=== PATIENT | female | born 1975 | race Caucasian/White ===

== ENCOUNTER 2020-07-17 10:57 | Outpatient (REF) | payer OTHER, SELFPAY | END 2020-07-17 10:58 | disposition home or self-care (01) | LOC: HO.LAB 10:57 | PROVIDERS: Visit Provider Advanced Practice Midwife | DX: N93.9 Abnormal uterine and vaginal bleeding, unspecified (principal); R58 Hemorrhage, not elsewhere classified | CPT/HCPCS: 88305; 99213; 99214; 99215 ==

== ENCOUNTER 2020-10-01 15:19 | Outpatient (REF) | payer OTHER, SELFPAY | END 2020-10-01 15:20 | disposition home or self-care (01) | LOC: HO.LNP 15:19 | PROVIDERS: Visit Provider Nurse Practitioner Family | DX: Z20.828 Contact with and (suspected) exposure to other viral communicable diseases (principal) | CPT/HCPCS: U0003 ==

== ENCOUNTER 2020-12-16 11:39 | Outpatient (REF) | payer OTHER, SELFPAY | END 2020-12-16 11:40 | disposition home or self-care (01) | LOC: HO.LNP 11:39 | PROVIDERS: Visit Provider Nurse Practitioner Family | DX: Z20.822 Contact with and (suspected) exposure to COVID-19 (principal) | CPT/HCPCS: U0003; U0005 ==

== ENCOUNTER → 2021-04-09 12:47 | Outpatient (REF) | payer OTHER, SELFPAY ==
--- NOTE | 2021-04-09 12:50 | CA_ITS ---
Transthoracic Echocardiogram Patient (Last, First, Middle): Johnathon Aranda, Gender: Female Date of : 1975 Age: 46 Procedure Date: 04/09/2021 Procedure Type: Transthoracic Echocardiogram Location: OP Height: 167.64 cm Weight: 104.33 kg BSA: 2.12 m2 Heart Rate: bpm BP: 110 / 80 mmHg Pattern Designer: CARLOS Zarate MD: Garrett Rubio [facility] Symptoms: R01.1 - Cardiac murmur, unspecified Study Quality: Good Conclusions: - Normal left ventricular size and systolic function. - Diastolic function is normal for age. - No significant valvular or pericardial pathology. Findings Left Ventricle Normal left ventricular size and systolic function. There is mildly increased left ventricular wall thickness. The visually estimated ejection fraction is between 55-60%. There is no evidence of regional wall motion abnormalities. Diastolic function is normal for age. Right Ventricle Normal right ventricular cavity size and systolic function. Atria Both atria are normal in size. Aortic Valve Normal aortic valve structure and function. There is no aortic valve stenosis. There is no aortic valve regurgitation. Mitral Valve Normal mitral valve structure and function. There is no mitral valve regurgitation. There is no mitral valve stenosis. Pulmonic Valve Normal pulmonic valve structure and function. There is trace pulmonic valve regurgitation. Tricuspid Valve Normal tricuspid valve structure and function. There is trace tricuspid valve regurgitation. Normal right atrial pressure. There is no evidence of pulmonary hypertension. Great Vessels All visible segments of the aorta are normal in size. The visualized portions of the pulmonary artery and branches are normal. Venous The inferior vena cava is normal in size and collapses greater than 50% with inspiration. Pericardium/Pleural There is no evidence of pericardial effusion. Prior Study Comparison No prior study available for comparison. Measurements 2D Linear Measurements IVSd: 1.00 0.6-0.9/0.6-1.0 cm LVIDd: 4.64 3.9-5.3/4.2-5.9 cm LVIDd Index: 2.19 2.4-3.2/2.2-3.1 cm/m2 LVIDs: 2.75 2.0-3.6 cm LVPWd: 0.90 0.7-1.1 cm Ao Root: 3.50 2.1-3.5 cm LA Diam: 3.90 2.7-3.8/3.0-4.0 cm LAIDs Index: 1.84 1.5-2.3 cm/m2 LV Mass: 187.56 67-162/88-224 g LV Mass Index: 88.47 43-95/49-115 g/m2 LVOT Diam: 2.20 3.0+(-)1.3 cm Mitral Valve MV Pk E: 0.75 MV PK A: 0.58 MV Decel Time: 344.00 E/A: 1.30 E'Lateral: 11.70 E'Medial: 8.27 E/E' Med: 9.00 E/E' Lat: 6.40 PHT: 101.00 MVA PHT: 2.18 Decel Morrow: 2.17 Aortic Valve AoV Pk Dylan: 1.36 AoV Mn Dylan: 0.99 AoV VTI: 0.32 AoV Pk Grad: 7.00 Aov Mn Grad: 4.00 VIRGIE Cont.VTI: 2.98 LVOT LVOT Pk Dylan: 1.07 LVOT Mn Dylan: 0.80 LVOT VTI: 0.25 LVOT Pk Grad: 5.00 LVOT Mn Grad: 3.00 LVOT Diam: 2.20 LVOT Area: 3.80 Diastolic Function MV Pk E: 0.75 MV Pk A: 0.58 E/A: 1.30 E'Medial: 8.27 E/E' Med: 9.00 E' Laterial: 11.70 E/E' Lat: 6.40 Tricuspid Valve TR Pk Dylan: 2.21 TR Pk Grad: 20.00 RA Press: 3.00 RVSP: 23.00 Great Vessels Aorta Ao Root-2D: 3.50 2.0-3.7 cm Ao Asc: 3.10 2.1-3.4 cm Ao Arch: 3.30 Updated in Other Vendor System with Status of Final Adonis Delgadillo MD electronically signed on 04/11/2021 7:10:19 PM with status of Final
[2021-04-09 15:33] LABS: Alanine Aminotransferase 26 U/L (0-31); Albumin Level 4.3 g/dL (3.5-5.0); Alkaline Phosphatase 84 U/L (39-117); Anion Gap 13 (12-20); Aspartate Amino Transferase 21 U/L (5-31); Bilirubin Total 0.3 mg/dL (0.0-1.0); Blood Urea Nitrogen 15 mg/dL (9-16); Calcium 10.4 mg/dL (8.4-10.2); Carbon Dioxide 30 mmol/L (22-29); Chloride 104 mmol/L (96-108); Cholesterol 263 mg/dL; Estimated Glomerular Filt Rate > 60; Glucose Fasting 92 mg/dL (60-99); HDL Cholesterol 59 mg/dL; LDL Cholesterol Calculated 152 mg/dl; Sodium 142 mmol/L (135-145); Total Protein 7.2 g/dL (6.5-8.0); Triglycerides 261 mg/dL
[2021-04-09 15:55] LABS: TSH reflex Free T4 1.74 uIU/mL (0.32-4.0)
== END ==
LOC: HO.CARD 12:47
PROVIDERS: PCP Nurse Practitioner Family; Visit Provider Nurse Practitioner Family
DX: Z00.00 Encounter for general adult medical examination without abnormal findings (principal); R01.1 Cardiac murmur, unspecified
CPT/HCPCS: 36415; 80053; 80061; 84443; 93306

== ENCOUNTER 2021-05-04 11:29 | Outpatient (REF) | payer OTHER, SELFPAY | END 2021-05-04 11:30 | disposition home or self-care (01) | LOC: HO.LNP 11:29 | PROVIDERS: Visit Provider Hospitalist | DX: Z20.822 Contact with and (suspected) exposure to COVID-19 (principal); J01.90 Acute sinusitis, unspecified | CPT/HCPCS: U0003; U0005 ==

== ENCOUNTER 2021-09-15 11:58 | Outpatient (REF) | payer OTHER, SELFPAY ==
[2021-09-15 13:00] LABS: Influenza A PCR NEGATIVE (Negative); Influenza B PCR NEGATIVE (Negative); Resp Syncy Virus RNA Qual PCR NEGATIVE (Negative); SARS COV2 PCR INHOUSE POSITIVE (Negative)
== END 2021-09-15 11:59 | disposition home or self-care (01) ==
LOC: HO.LNP 11:58
PROVIDERS: Visit Provider Physician Assistant Medical
DX: Z20.822 Contact with and (suspected) exposure to COVID-19 (principal); J06.9 Acute upper respiratory infection, unspecified
CPT/HCPCS: 0241U

== ENCOUNTER 2021-11-18 15:48 | Outpatient (REF) | payer OTHER, SELFPAY ==
--- NOTE | ~2021-11-18 | CT_ITS ---
EXAMINATION: CT ABDOMEN AND PELVIS WITHOUT CONTRAST CLINICAL INFORMATION: Abdominal pain. COMPARISON: Pelvic ultrasound dated from 04/15/[address] abdomen/pelvis dated from 06/30/2015. TECHNIQUE: Multidetector volumetric imaging was performed from the superior aspect of the liver through the pubic symphysis. Sagittal and coronal reformatted images were obtained on the technologist's workstation. This CT examination was performed using dose optimization techniques as appropriate, variously including the following: *Automated exposure control *Adjustment of mA and/or kV according to patient size (this includes techniques or standardized protocols for targeted exams where dose is matched to indication/reason for exam; i.e. extremities or head) *Use of iterative reconstruction technique DLP: 754 mGy-cm FINDINGS: LUNG BASES: No focal consolidation or pleural effusion. A 0.4 cm pulmonary nodule in the left lung base (6:68) is unchanged since 2014. A 0.4 cm subpleural nodule in the right middle lobe (6:115) is also stable. Fissural lymph nodes are noted. LIVER, GALLBLADDER, AND BILIARY TREE: A 1.9 cm nonspecific hypoattenuating lesion in the right hepatic lobe (3:31) is unchanged since 2014. An ill-defined and very difficult to accurately delineate hypodensity in the right hepatic lobe (3:34) seems new. An additional tiny hypodensity in the right hepatic lobe (3:28) is also not identified in 2015. Otherwise, the liver is normal in size and shape. Normal gallbladder. No intrahepatic biliary ductal dilatation. PANCREAS: Unremarkable. SPLEEN: Unremarkable. ADRENAL GLANDS: Unremarkable. KIDNEYS AND URETERS: The kidneys are normal in size, shape, and attenuation. A too small to characterize hypodensity in the upper pole of the left kidney (3:37) is statistically likely to represent a simple cyst and was also identified in 2015. No hydronephrosis, hydroureter, or calculi seen. No perinephric stranding. BLADDER: Unremarkable. GASTROINTESTINAL TRACT: The small and large bowel are unremarkable. The appendix is unremarkable. ABDOMINAL WALL: No significant hernia is appreciated. LYMPH NODES: Mild haziness of the upper mesentery with a few prominent mesenteric lymph nodes are of uncertain significance. A clustered of prominent lymph nodes in the right lower quadrant measuring up to 0.7 cm in short axis are slightly more prominent than when compared to 2015. No lymphadenopathy by size criteria. VASCULAR: Unremarkable. PELVIC VISCERA: Multiple uterine fibroids with new calcifications. OSSEOUS STRUCTURES: No acute or aggressive appearing osseous abnormalities. Multilevel thoracolumbar spondylosis. CT/CT abdomen pelvis wo con IMPRESSION: No evidence of active inflammatory bowel changes or bowel obstruction. Normal appendix. Nonspecific haziness of the upper mesentery with a few prominent mesenteric lymph nodes which are more apparent in the right lower quadrant. These findings are of uncertain significance and could be associated with mesenteric adenitis in the appropriate clinical context. Nonspecific liver hypodensities one of which is stable since 2015 and two other not definitely identified in 2015. One of these new hypodensities is likely perfusional in etiology or related with differential fatty infiltration and is very subtle. The other tiny hypodensity likely represents a cyst. Further characterization could be obtained with a dedicated liver ultrasound. Multiple uterine fibroids with new associated calcifications, reflecting some degree of degeneration.
[2021-11-18 16:52] LABS: MANUAL DIFF FLAG NO
[2021-11-18 17:11] LABS: Basophils Percent Auto 0.5 % (0-2); Eosinophils Absolute Auto 0.3 X10*3/uL (0.0-0.4); Imm Gran Abs Auto 0.04 X10*3/uL (0.00-0.03); Imm Gran Pct Auto 0.5 % (0.0-0.4); Lymphocytes Absolute Auto 2.4 X10*3/uL (1.2-4.9); Lymphocytes Percent Auto 28.7 % (20-40); Mean Corpuscular HGB Conc 33.3 g/dl (31.0-35.0); Mean Corpuscular Hemoglobin 31.5 pg (27.0-33.0); Mean Corpuscular Volume 94.6 fL (80.0-98.0); Mean Platelet Volume 9.7 fL (9.4-12.3); Monocytes Absolute Auto 0.7 X10*3/uL (0.1-1.2); Monocytes Percent Auto 7.8 % (2-11); Neutrophils Percent Auto 59.5 % (45-73); Platelet Count 401 X10*3/uL (160-400); Red Blood Count 4.44 X10*6/uL (4.20-5.50); Red Cell Distribution Width 11.9 % (11.0-16.0); White Blood Count 8.4 X10*3/uL (4.8-10.8)
[2021-11-18 17:37] LABS: Alanine Aminotransferase 21 U/L (0-31); Albumin Level 4.2 g/dL (3.5-5.0); Alkaline Phosphatase 88 U/L (39-117); Anion Gap 16 (12-20); Aspartate Amino Transferase 16 U/L (5-31); Bilirubin Total 0.4 mg/dL (0.0-1.0); Blood Urea Nitrogen 15 mg/dL (9-16); Calcium 10.1 mg/dL (8.4-10.2); Carbon Dioxide 25 mmol/L (22-29); Chloride 110 mmol/L (96-108); Estimated Glomerular Filt Rate > 60; Glucose Random 98 mg/dL (60-115); Potassium 5.1 mmol/L (3.3-5.1); Sodium 146 mmol/L (135-145); Total Protein 7.1 g/dL (6.5-8.0)
[2021-11-18 17:59] LABS: TSH reflex Free T4 3.29 uIU/mL (0.32-4.0)
[2021-11-19 17:16] LABS: PTHI 40 pg/mL (14-64)
[2021-11-22 08:33] LABS: Calcium, Ionized 5.2 mg/dL (4.8-5.6)
== END 2021-11-18 15:49 | disposition home or self-care (01) ==
LOC: HO.CT 15:48
PROVIDERS: PCP Nurse Practitioner Family; Visit Provider Nurse Practitioner Family
DX: R10.9 Unspecified abdominal pain (principal); R19.7 Diarrhea, unspecified; E83.52 Hypercalcemia
CPT/HCPCS: 36415; 74176; 80053; 82330; 83970; 84443; 85025

== ENCOUNTER 2021-11-22 14:25 | Outpatient (REF) | payer OTHER, SELFPAY ==
[2021-11-22 17:13] LABS: Amylase 67 U/L (28-100); C Reactive Protein 0.41 mg/dL (< or = 0.50); Lactate Dehydrogenase 183 U/L (122-220); Lipase 67 U/L (8-78)
[2021-11-22 17:38] LABS: Erythrocyte Sedimentation Rate 23 MM/HR (0-20)
[2021-11-23 21:11] LABS: Lyme Abs Screen <0.90 index
== END 2021-11-22 14:26 | disposition home or self-care (01) ==
LOC: HO.LAB 14:25
PROVIDERS: PCP Nurse Practitioner Family; Referring Provider Nurse Practitioner Family; Visit Provider Nurse Practitioner
DX: K63.89 Other specified diseases of intestine (principal); R50.9 Fever, unspecified; Z86.16 Personal history of COVID-19; Z12.11 Encounter for screening for malignant neoplasm of colon
CPT/HCPCS: 36415; 82150; 83615; 83690; 85652; 86140; 86617; 86618; 87040; 99212

== ENCOUNTER → 2021-12-14 07:46 | Outpatient (BNVA) | payer OTHER, SELFPAY | PROVIDERS: PCP Nurse Practitioner Family; Referring Provider Nurse Practitioner Family; Visit Provider Nurse Practitioner | DX: Z12.11 Encounter for screening for malignant neoplasm of colon (principal); K63.89 Other specified diseases of intestine; A69.23 Arthritis due to Lyme disease; U09.9 Post COVID-19 condition, unspecified | CPT/HCPCS: 99212 ==

== ENCOUNTER 2021-12-28 12:32 | Outpatient (REF) | payer OTHER, SELFPAY ==
[2021-12-28 14:00] LABS: MANUAL DIFF FLAG NO
[2021-12-28 14:58] LABS: Basophils Absolute Auto 0.1 X10*3/uL (0.0-0.2); Basophils Percent Auto 0.8 % (0-2); Eosinophils Absolute Auto 0.2 X10*3/uL (0.0-0.4); Eosinophils Percent Auto 2.1 % (0-4); Hematocrit 45.7 % (37.0-47.0); Imm Gran Abs Auto 0.06 X10*3/uL (0.00-0.03); Imm Gran Pct Auto 0.7 % (0.0-0.4); Lymphocytes Absolute Auto 2.3 X10*3/uL (1.2-4.9); Mean Corpuscular HGB Conc 32.8 g/dl (31.0-35.0); Mean Corpuscular Hemoglobin 31.1 pg (27.0-33.0); Mean Corpuscular Volume 94.8 fL (80.0-98.0); Mean Platelet Volume 9.8 fL (9.4-12.3); Monocytes Absolute Auto 0.7 X10*3/uL (0.1-1.2); Monocytes Percent Auto 8.2 % (2-11); Neutrophils Absolute Auto 5.5 x10*3/uL (2.0-8.3); Neutrophils Percent Auto 62.2 % (45-73); Platelet Count 420 X10*3/uL (160-400); Red Blood Count 4.82 X10*6/uL (4.20-5.50); Red Cell Distribution Width 12.2 % (11.0-16.0); White Blood Count 8.8 X10*3/uL (4.8-10.8)
[2021-12-28 15:29] LABS: Alanine Aminotransferase 36 U/L (0-31); Albumin Level 4.6 g/dL (3.5-5.0); Alkaline Phosphatase 99 U/L (39-117); Anion Gap 14 (12-20); Aspartate Amino Transferase 18 U/L (5-31); Bilirubin Total 0.4 mg/dL (0.0-1.0); Blood Urea Nitrogen 16 mg/dL (9-16); C Reactive Protein 0.44 mg/dL (< or = 0.50); Calcium 11.2 mg/dL (8.4-10.2); Carbon Dioxide 30 mmol/L (22-29); Chloride 101 mmol/L (96-108); Estimated Glomerular Filt Rate > 60; Glucose Random 95 mg/dL (60-115); Lactate Dehydrogenase 187 U/L (122-220); Potassium 4.6 mmol/L (3.3-5.1); Sodium 140 mmol/L (135-145); Total Protein 7.7 g/dL (6.5-8.0)
[2021-12-28 15:44] LABS: Erythrocyte Sedimentation Rate 23 MM/HR (0-20)
[2022-01-03 12:46] LABS: Anti Nuclear Antibody Screen NEGATIVE (NEGATIVE)
== END 2021-12-28 12:33 | disposition home or self-care (01) ==
LOC: HO.LAB 12:32
PROVIDERS: PCP Nurse Practitioner Family; Referring Provider Nurse Practitioner Family; Visit Provider Nurse Practitioner
DX: K63.89 Other specified diseases of intestine (principal); Z86.19 Personal history of other infectious and parasitic diseases
CPT/HCPCS: 36415; 80053; 83615; 85025; 85652; 86038; 86039; 86140; 99212

== ENCOUNTER 2021-12-29 08:42 | Outpatient (REF) | payer OTHER, SELFPAY ==
--- NOTE | ~2021-12-29 | US_ITS ---
EXAMINATION: US ABDOMEN LIMITED CLINICAL INFORMATION: Abdominal pain. Liver cyst. COMPARISON: CT abdomen and pelvis 11/18/2021. TECHNIQUE: Real-time imaging of the right upper quadrant abdominal viscera. FINDINGS: PANCREAS: Normal. LIVER: The liver is normal in size. The liver contour is normal. Hypoechoic focus in the anterior right hepatic lobe measuring 2.2 x 1.5 x 1.6 cm with slight vascularity, nonspecific. There is no intrahepatic biliary duct dilatation seen. GALLBLADDER: Normal. The gallbladder is physiologically distended without evidence of stones, sludge, polyps, wall thickening or pericholecystic fluid. Sonographic Luis sign is negative. COMMON BILE DUCT: Normal in caliber measuring 0.3 cm in diameter. RIGHT KIDNEY: Normal. No hydronephrosis. No renal calculi or focal parenchymal lesions. The kidney measures 11.9 cm in maximum dimension. FREE FLUID: None. US/US abdomen limited IMPRESSION: Hypoechoic focus in the anterior right hepatic lobe measuring 2.2 x 1.5 x 1.6 cm with slight vascularity, nonspecific. If clinically warranted consider further evaluation with MRI.
== END 2021-12-29 08:43 | disposition home or self-care (01) ==
LOC: HO.HMGCX 08:42
PROVIDERS: PCP Nurse Practitioner Family; Visit Provider Nurse Practitioner Family
DX: K76.89 Other specified diseases of liver (principal)
CPT/HCPCS: 76705

== ENCOUNTER 2021-12-30 08:11 | Outpatient (REF) | payer OTHER, SELFPAY | END 2021-12-30 08:12 | disposition home or self-care (01) | LOC: HO.HMGCLNP 08:11 | PROVIDERS: Visit Provider Nurse Practitioner | DX: Z86.19 Personal history of other infectious and parasitic diseases (principal) | CPT/HCPCS: 87338 ==

== ENCOUNTER 2022-01-19 13:27 | Outpatient (REF) | payer OTHER, SELFPAY ==
--- NOTE | ~2022-01-19 | MR_ITS ---
EXAMINATION: MR ABDOMEN WITHOUT AND WITH CONTRAST CLINICAL INFORMATION: Patient reports symptoms of abdominal pain COMPARISON: Abdominal ultrasound 12/29/2021, CT abdomen pelvis 11/18/2021, CT abdomen 07/01/2015 TECHNIQUE: MR abdomen was performed without and with use of 10 mL intravenous Gadavist gadolinium contrast. Postcontrast images are performed in multiphase dynamic sequences. Imaging was performed in 3 planes. FINDINGS: LUNG BASES: A 5 mm left lower lobe pulmonary nodule, which does not appear to definitively correspond to the previously described stable pleural-based pulmonary nodule as it is more anterior and lateral in position, 8:7. KIDNEYS AND URETERS: Unremarkable. GALLBLADDER: Unremarkable. LIVER AND BILIARY TREE: Loss of signal on opposed phase imaging compatible with hepatic steatosis. Subcentimeter T2 hyperintense cyst in the left hepatic lobe. A 1.5 cm T2 hyperintense liver lesion in the right hepatic lobe with discontinuous peripheral nodular enhancement and gradual fill-in compatible with a hemangioma present since 2014. A 2.1 cm faintly T2 hyperintense, avidly arterially enhancing liver lesion which fades to isointensity on delayed phases in hepatic segment 5 corresponding to the sonographic lesion without clear correlate on prior CTs. No intra or extrahepatic biliary duct dilatation. PANCREAS: Unremarkable SPLEEN: Unremarkable ADRENAL GLANDS: Unremarkable GASTROINTESTINAL TRACT: Unremarkable. LYMPH NODES: No lymphadenopathy. VASCULAR: Unremarkable ABDOMINAL WALL: Unremarkable. OSSEOUS STRUCTURES: T2 hyperintense lesion in the L2 vertebral body which appears to correspond to hemangioma on prior imaging, present since 2014. MR/MR abdomen wo/w con IMPRESSION: A 2.1 cm faintly T2 hyperintense, avidly arterially enhancing liver lesion which fades to isointensity on delayed phases in hepatic segment 5 corresponding to the sonographic lesion however without clear correlate on prior CTs. Differential considerations could include a hepatic adenoma or focal nodular hyperplasia. In the absence of known malignancy a hypervascular metastasis would be unlikely. Consider 3-6 month follow-up MR with [facility] for definitive characterization. A 5 mm left lower lobe pulmonary nodule, which does not appear to definitively correspond to the previously described stable pleural-based pulmonary nodule as it is more anterior and lateral in position, may reflect a new pulmonary nodule. Consider further evaluation with dedicated CT chest. A 1.5 cm T2 hyperintense liver lesion in the right hepatic lobe with discontinuous peripheral nodular enhancement and gradual fill-in compatible with a hemangioma present since 2014.
== END 2022-01-19 13:28 | disposition home or self-care (01) ==
LOC: HO.MRI 13:27
PROVIDERS: Visit Provider Nurse Practitioner Family
DX: K76.9 Liver disease, unspecified (principal)
CPT/HCPCS: 74183; A9585

== ENCOUNTER → 2022-02-01 15:07 | Outpatient (BNVA) | payer OTHER, SELFPAY | PROVIDERS: PCP Nurse Practitioner Family; Visit Provider Nurse Practitioner | DX: K63.89 Other specified diseases of intestine (principal); K59.04 Chronic idiopathic constipation; R10.9 Unspecified abdominal pain | CPT/HCPCS: 99212 ==

== ENCOUNTER 2022-02-10 13:13 | Outpatient (REF) | payer OTHER, SELFPAY ==
--- NOTE | ~2022-02-10 | CT_ITS ---
EXAMINATION: CT CHEST WITHOUT CONTRAST CLINICAL INFORMATION: 5 mm left lower lobar lung nodule seen on recent abdominal MRI study done on 01/19/2022. For follow-up. COMPARISON: MRI of the abdomen done on 01/19/[address] of the abdomen and pelvis done on 11/18/2021, and available baseline study done on 07/01/2015.. TECHNIQUE: Multidetector volumetric CT imaging of the chest was done. Axial MIP volume rendering provided. Sagittal and coronal reformatted images were obtained. This CT examination was performed using dose optimization techniques as appropriate, variously including the following: *Automated exposure control *Adjustment of mA and/or kV according to patient size (this includes techniques or standardized protocols for targeted exams where dose is matched to indication/reason for exam; i.e. extremities or head) *Use of iterative reconstruction technique DLP: 168 mGy-cm FINDINGS: IRISH MOSS OPERATOR: Unremarkable. LUNGS: The index sub-5 mm noncalcified subpleural nodule within the left lung base (306:8) appear unchanged since the available baseline study dated 07/01/2015. There are no other lung nodules identified within the left lung base. Similar appearing sub-5 mm noncalcified nodule within the right middle lobe laterally (302:8) and a smaller sub-5 mm nodule within the right lung base posteromedially along the paraspinal region (329:8) also appear unchanged since the baseline study dated 07/01/2015. Given the long-term stability, consistent with benign pathology. Additional tiny punctate sub-5 mm calcified nodule is noted within the left upper lobe laterally anterior to the left major fissure (178:8), given the presence of calcification, likely represent an old granulomatous disease. Sub-5 mm noncalcified nodule within the right upper lobe posterolaterally (148:8), and Glenna-fissural nodules involving the right major fissure (184, 236, and 253:8) are also noted. Please note that the areas of the lung were not included within the [id number] on prior CT of the abdomen and pelvis study done on 07/01/2015 and 11/18/2021. Accordingly, long-term stability of these nodules is not established. The remainder of the lung villalta appear clear. The tracheobronchial tree is patent. MEDIASTINUM: There are no pathologically enlarged mediastinal and/or hilar lymphadenopathy present. PLEURA: There is no pleural effusion. No pleural mass or thickening. AXILLA: No lymphadenopathy. UPPER ABDOMEN: Remarkable for fat-containing sub-5 mm circumscribed lesion at lateral part of the mid left kidney, most consistent with small angiomyolipoma. OSSEOUS STRUCTURES: Unremarkable. CT/CT chest wo con IMPRESSION: 1. The indexed sub-5 mm noncalcified subpleural nodule at left lung base appear unchanged since the available baseline study dated 07/01/2015. Similar appearing sub-5 mm noncalcified nodule within the right middle lobe laterally and the smaller sub-5 mm nodule within the right lung base posterolaterally medially along the paraspinal region also appear stable since the baseline study dated 07/01/2015. Given the long-term stability, the finding consistent with benign pathology. 2. Additional tiny punctate sub-5 mm calcified nodule within the left upper lobe laterally and multiple Glenna-fissural nodules involving the right major fissure are present. However, there are no prior studies available for comparison to ensure stability of these nodules. Please note that these areas of the lung was not included within the [id number] on prior CT of the abdomen and pelvis dated 07/01/2015 and 11/18/2021. Follow-up surveillance in 1 year to ensure stability is recommended. 3. The visualized upper abdomen is remarkable for fat-containing sub-5 mm circumscribed hypodense lesion at mid lateral part of the left kidney, most consistent with small angiomyolipoma. Fleischner guidelines were followed.
== END 2022-02-10 13:14 | disposition home or self-care (01) ==
LOC: HO.CT 13:13
PROVIDERS: Visit Provider Nurse Practitioner Family
DX: R91.1 Solitary pulmonary nodule (principal)
CPT/HCPCS: 71250

== ENCOUNTER → 2022-03-15 12:44 | Outpatient (BNVA) | payer OTHER, SELFPAY | PROVIDERS: PCP Nurse Practitioner Family; Visit Provider Nurse Practitioner | DX: R10.9 Unspecified abdominal pain (principal); K63.89 Other specified diseases of intestine; K59.04 Chronic idiopathic constipation; Z79.899 Other long term (current) drug therapy | CPT/HCPCS: 99212 ==

== ENCOUNTER 2022-04-25 11:59 | Day surgery (SDC) | payer OTHER, SELFPAY ==
[2022-04-19 14:01] VITALS: BMI 37.1
--- NOTE | 2022-04-22 09:07 | HO.ANESPROP2 ---
Documented by User: Bere Samaniego NP 04/22/22 09:08 HPI - Anesthesia Eval Consult details Narrative: 47yo F for Upper Endoscopy and Colonoscopy PMFSH Active Problems Active Problems: All Active Problems (Updated 04/19/22 @ 14:00 by Nay Santamaria RN) Abnormal uterine bleeding (AUB) (Acute) Nasal congestion (Acute) Bilateral nonsuppurative otitis media (Acute) Encounter for screening for COVID-19 (Acute) Pressure sensation in right ear (Acute) Physical exam (Acute) Systolic murmur (Acute) Psoriasis (Acute) Tick bite (Acute) Dyslipidemia (Acute) Serum calcium elevated (Acute) Acute sinusitis (Acute) Viral illness (Acute) Morbid obesity (Acute) Anxiety (Acute) Chronic edema (Acute) Asthma (Acute) History of Helicobacter pylori infection (Acute) Continuous severe abdominal pain (Acute) Liver cyst (Acute) Colon cancer screening (Acute) Epiploic appendagitis (Acute) Fever (Acute) 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) Liver lesion (Acute) Hypercalcemia (Acute) Pulmonary nodule (Acute) Chronic idiopathic constipation (Acute) Past Medical History Medical History Anemia Chronic low back pain Dysfunctional uterine bleeding Endometriosis Fibroid, uterine History of COVID-19 History of Lyme disease History of pituitary adenoma Hypertension Migraines Right temporomandibular joint disorder, unspecified Seasonal allergies Family History Family History Father Prostate cancer HTN (hypertension) Mother Optic nerve benign neoplasm Paternal Aunt Breast cancer Paternal Uncle Substance use disorder Family/Other Substance use disorder Maternal Aunt Mental health disorder Surgical History Surgical History H/O colonoscopy History of dilation and curettage History of lumpectomy of right breast Hx of sinus surgery Status post embolization of uterine artery Social History Social History Housing: House Alcohol intake: current Alcohol intake frequency: holidays/special occasions only Patient Tobacco Use Status: Never used Tobacco e-Cigarette/Vaping Use: Never Used Second Hand Smoke Exposure: No Use of substances other than those prescribed or required for medical reasons: No Are you DNR?: No Advance Directives: No Advance Directives Information Provided: Yes Current occupational status: employed Current occupation: [employer] Sexual orientation: Straight/Heterosexual Gender identity: Female Cognitive needs: No Hearing needs: No Vision needs: No Meds Allergies Allergy/AdvReac Type Severity Reaction Status Date / Time Sulfa (Sulfonamide Allergy Severe RASH, hives Verified 04/25/22 12:54 Antibiotics) [SULFA (SULFONAMIDE ANTIBIOTICS)] bee pollen [BEE STINGS] Allergy Mild SWELLING, Verified 04/25/22 12:54 EPI PEN acetaminophen [Midol] AdvReac Intermediate headaches Verified 04/25/22 12:54 shaking pamabrom [Midol] AdvReac Intermediate headaches Verified 04/25/22 12:54 shaking fentanyl AdvReac Unknown Verified 04/25/22 12:46 hydromorphone [From Dilaudid] AdvReac Unknown Verified 04/25/22 12:45 Home Medications Medication Instructions Recorded Confirmed Last Taken Type cetirizine 10 mg tablet (Zyrtec) 10 mg PO DAILY PRN Allergic 02/10/21 02/14/22 Unknown History Symptoms multivitamin 1 tab PO DAILY 02/10/21 02/14/22 Unknown History Bacillus coagulans 800 million cell PO 11/18/21 02/14/22 Unknown History cell tablet (Digestive Advantage Probiotics-Prebiotic) ascorbic acid 125 mg-collagen, cap PO 11/18/21 02/14/22 Unknown History hydrolyzed 740 mg capsule (Collagen Plus Vitamin C) betamethasone dipropionate 0.05 % topical 11/18/21 02/14/22 Unknown History lotion albuterol sulfate 90 mcg/actuation 2 puff inhalation Q4H 02/14/22 02/14/22 Unknown History aerosol inhaler (ProAir HFA) bisacodyl 5 mg tablet,delayed 10 mg PO BID 04/25/22 Unknown History release (Dulcolax (bisacodyl)) Exam Exam Date and Time: April 22, 2022 09 Height,Weight and Vital Signs: Height 5 ft 6 in Weight 104.326 kg Pertinent Lab Results Pertinent Lab Results: Laboratory Tests 12/28/21 12/28/21 13:57 13:57 WBC 8.8 Hgb 15.0 Hct 45.7 Plt Count 420 H Sodium 140 Potassium 4.6 Chloride 101 Carbon Dioxide 30 H BUN 16 Creatinine 0.77 Assessment and Plan Assessment Anesthesia Assessment: Chart Reviewed Documented by User: Taylor De La O MD 04/25/22 13:24 PMF Past Medical History Medical History Anemia Chronic low back pain Dysfunctional uterine bleeding Endometriosis Fibroid, uterine History of COVID-19 History of Lyme disease History of pituitary adenoma Hypertension Migraines Right temporomandibular joint disorder, unspecified Seasonal allergies Family History Family History Father Prostate cancer HTN (hypertension) Mother Optic nerve benign neoplasm Paternal Aunt Breast cancer Paternal Uncle Substance use disorder Family/Other Substance use disorder Maternal Aunt Mental health disorder Family history of problems with anesthesia: No Surgical History Surgical History H/O colonoscopy History of dilation and curettage History of lumpectomy of right breast Hx of sinus surgery Status post embolization of uterine artery History of Problems with Anesthesia: No Social History Social History Housing: House Alcohol intake: current Alcohol intake frequency: holidays/special occasions only Patient Tobacco Use Status: Never used Tobacco e-Cigarette/Vaping Use: Never Used Second Hand Smoke Exposure: No Use of substances other than those prescribed or required for medical reasons: No Are you DNR?: No Advance Directives: No Advance Directives Information Provided: Yes Current occupational status: employed Current occupation: [employer] Sexual orientation: Straight/Heterosexual Gender identity: Female Cognitive needs: No Hearing needs: No Vision needs: No Meds Allergies Allergy/AdvReac Type Severity Reaction Status Date / Time Sulfa (Sulfonamide Allergy Severe RASH, hives Verified 04/25/22 12:54 Antibiotics) [SULFA (SULFONAMIDE ANTIBIOTICS)] bee pollen [BEE STINGS] Allergy Mild SWELLING, Verified 04/25/22 12:54 EPI PEN acetaminophen [Midol] AdvReac Intermediate headaches Verified 04/25/22 12:54 shaking pamabrom [Midol] AdvReac Intermediate headaches Verified 04/25/22 12:54 shaking fentanyl AdvReac Unknown Verified 04/25/22 12:46 hydromorphone [From Dilaudid] AdvReac Unknown Verified 04/25/22 12:45 Home Medications Medication Instructions Recorded Confirmed Last Taken Type cetirizine 10 mg tablet (Zyrtec) 10 mg PO DAILY PRN Allergic 02/10/21 02/14/22 Unknown History Symptoms multivitamin 1 tab PO DAILY 02/10/21 02/14/22 Unknown History Bacillus coagulans 800 million cell PO 11/18/21 02/14/22 Unknown History cell tablet (Digestive Advantage Probiotics-Prebiotic) ascorbic acid 125 mg-collagen, cap PO 11/18/21 02/14/22 Unknown History hydrolyzed 740 mg capsule (Collagen Plus Vitamin C) betamethasone dipropionate 0.05 % topical 11/18/21 02/14/22 Unknown History lotion albuterol sulfate 90 mcg/actuation 2 puff inhalation Q4H 02/14/22 02/14/22 Unknown History aerosol inhaler (ProAir HFA) bisacodyl 5 mg tablet,delayed 10 mg PO BID 04/25/22 Unknown History release (Dulcolax (bisacodyl)) Exam Airway Mallampati Class: II (Implant top left off to side) TM Dist: >3cm Neck ROM: Full Heart: rrr Lungs: cta Assessment and Plan Assessment Anesthesia Assessment: Anesthesia Plan Discussed and Chart Reviewed Final Anesthetic Review Family History of Problems with Anesthesia: No History of Problems with Anesthesia: No NPO: Yes ASA Class: II Final Preanesthetic Review: No Changes in Pt Med Stat, Meds/Allgs Chart Reviewed and Consent Obtained/Reviewed Patient Risk: Intermediate Procedure Risk: Intermediate Anesthetic Plan Anesthetic Plan: MAC: Disposition: Standard PACU
[2022-04-25 13:10] VITALS: BP 141/93; PULSE 80; RESP 15; TEMP 37.1; O2SAT 97
[2022-04-25 13:15] LABS: UPreg QC Valid YES; Urine Pregnancy NEGATIVE (NEGATIVE)
[2022-04-25] MEDS: Lactated Ringers 1,000 ML 100 ML IVCONT (13:20)
--- NOTE | 2022-04-25 13:38 | MHC.SHP ---
Pre-Procedural Eval Section A Date of Service: 04/25/22 Section B Chief Complaint: constipation,abd pain Details of Present Illness: nausea, abdominal pain Relevant Family History (Specify if Yes): No Relevant Social History: None Present Medications: see Short Stay Collaborative assessment Medical History: Significant History (Anemia Chronic low back pain Dysfunctional uterine bleeding Endometriosis Fibroid, uterine History of Lyme disease History of pituitary adenoma Hypertension Migraines Right temporomandibular joint disorder, unspecified Seasonal allergies) History of Previous Operations: Relevant previous surgery/procedure and date(s) (H/O colonoscopy History of dilation and curettage History of lumpectomy of right breast Hx of sinus surgery Status post embolization of uterine artery) Allergies: Allergies Allergy/AdvReac Type Severity Reaction Status Date / Time Sulfa (Sulfonamide Allergy Severe RASH, hives Verified 04/25/22 12:54 Antibiotics) [SULFA (SULFONAMIDE ANTIBIOTICS)] bee pollen [BEE STINGS] Allergy Mild SWELLING, Verified 04/25/22 12:54 EPI PEN acetaminophen [Midol] AdvReac Intermediate headaches Verified 04/25/22 12:54 shaking pamabrom [Midol] AdvReac Intermediate headaches Verified 04/25/22 12:54 shaking fentanyl AdvReac Unknown Verified 04/25/22 12:46 hydromorphone [From Dilaudid] AdvReac Unknown Verified 04/25/22 12:45 Review of Systems Sugical H&P ROS: Negative: Constitution, Cardiovascular and Respiratory and Yes, Specify: Gastrointestinal (Nausea, abdominal pain) Exam Surgical H&P Exam: Normal: Heart, Normal: Lungs, Normal: Extremities and Normal: Abdomen Plan Diagnosis/Plan: Unchanged I have reviewed the history and physical and performed a pertinent physical examination on my patient. No changes have occurred unless specified.
--- NOTE | 2022-04-25 13:48 | PM.OP ---
Brief Operative Note Date of Service: 04/25/22 Pre-op diagnosis: Abdominal pain, nausea Post-op diagnosis: other (Gastritis, colon polyps, diverticulosis, hemorrhoids) Procedure: FLEXIBLE TRANSORAL UPPER GASTROINTESTINAL ENDOSCOPY WITH BIOPSIES AND COLONOSCOPY TILL CECUM WITH BIOPSIES AND SNARE POLYPECTOMY UPPER ENDOSCOPY Consent: Indications for the procedure and potential complications of bleeding, perforation, reaction to medications and missed diagnosis were discussed with the patient and informed consent was obtained. Instrument: Olympus GIF H 190 mid size upper endoscope Monitoring: Vital signs and clinical assessment, continuous EKG monitoring, Pulse oximetry, Carbon Dioxide monitoring and blood pressure monitoring were done throughout the procedure. Procedure: The patient was placed in the left lateral decubitis position and pre-procedure medications were administered and a bite block was placed. The endoscope was inserted into the mouth and advanced under direct vision to the third part of duodenum. A careful inspection was made as the upper endoscope was withdrawn including a retroflexed examination of the proximal stomach; Findings and interventions are described below. Findings: Larynx: Normal Esophagus: GE junction at 36 cms. No esophagitis or Kwan's. Stomach: Mild diffuse gastric erythema. Biopsies were obtained from the gastric antrum and body. Grade 2 flap valve on retroflexed examination of the cardia. Duodenum: Normal bulb and descending duodenum. Biopsies were obtained from 3rd part of the duodenum to check for celiac sprue. Intervention: Biopsies as noted above COLONOSCOPY PROCEDURE NOTE Consent: Indications for the procedure and potential complications of bleeding, perforation, reaction to medications and missed diagnosis were discussed with the patient and informed consent was obtained. Instrument: Olympus PCF H 190 L variable stiffness pediatric colonoscope Monitoring: Vital signs and clinical assessment, intermittent blood pressure monitoring, continuous EKG monitoring, Pulse oximetry and Carbon Dioxide monitoring were done throughout the procedure. Colon withdrawl time was 17 minutes. Procedure: The patient was placed in the left lateral decubitis position and pre-procedure medications were administered. After a digital rectal examination of the ano-rectum, the video colonoscope was inserted into the rectum and advanced through the colon to the cecum. The colonoscope was slowly withdrawn in a retrograde panoramic fashion and the colon mucosa was carefully examined including a retroflexed view of the rectum. Findings and interventions are described below. Procedure Difficulty: : Without difficulty Findings: Terminal Ileum: Distal 10 cms was examined and appeared normal Cecum: Normal Ascending Colon: A 4-5 mm sessile polyp in the distal AC removed with a cold bx. Transverse Colon: A 6-7 mm sessile polyp, removed with a cold bx Descending Colon: Normal Sigmoid Colon: Moderate diverticulosis Rectum: Normal Ano-rectum: Glenna-anal skin tags Colon preparation: Excellent Impression and Post Procedure Diagnosis: Endoscopy Findings: STOMACH: Mild diffuse gastric erythema. Biopsies were obtained from the gastric antrum and body. DUODENUM: Normal Colonoscopy Findings: Two small polyps removed Moderate diverticulosis seen in the sigmoid colon Plan: Await pathology results Patient has an appointment on 05/11/22 in the GI Clinic with Laly Rios NP. Repeat Colonoscopy interval based on path results - in 5 years if polyps are adenomatous and 10 years if polyps are hyperplastic. Above findings were reviewed with the patient and Gastritis, colon polyps and diverticulosis handouts were given in the discharge area Surgeon: Karthik Lewis MD Anesthesia: MAC Was an Jackhammer Splitter Operator used for this Procedure?: Yes Jackhammer Splitter Operator: Carlos Eduardo Romero Estimated blood loss (mL): 0 Pathology: other (A) BX Small Bowel B) BX Gastric Antrum C) BX Gastric Body D)BX Right Colon R/O Microscopic Colitis E) Polyp Ascending Colon F) Polyp Transverse Colon ) Condition: stable Disposition: PACU
[2022-04-25 14:34] VITALS: BP 99/60; PULSE 79; RESP 18; TEMP 36.6; O2SAT 95
[2022-04-25 14:49] VITALS: BP 146/87; PULSE 72; RESP 18; O2SAT 97
[2022-04-25 15:04] VITALS: BP 155/88; PULSE 66; RESP 18; TEMP 36.6; O2SAT 97
--- NOTE | 2022-04-25 16:29 | P.OP_ITS ---
Operative Note Operative Note Date of Service: 04/25/22 Narrative: Pre-op diagnosis: Abdominal pain, nausea Post-op diagnosis:?other (Gastritis, colon polyps, diverticulosis, hemorrhoids) Procedure: FLEXIBLE TRANSORAL UPPER GASTROINTESTINAL ENDOSCOPY WITH BIOPSIES AND COLONOSCOPY TILL CECUM WITH BIOPSIES AND SNARE POLYPECTOMY UPPER ENDOSCOPY Consent:?Indications for the procedure and potential complications of bleeding, perforation, reaction to medications and missed diagnosis were discussed with the patient and informed consent was obtained. Instrument:?Olympus GIF H 190 mid size upper endoscope Monitoring: Vital signs and clinical assessment, continuous EKG monitoring, Pulse oximetry, Carbon Dioxide monitoring and blood pressure monitoring were done throughout the procedure. Procedure:?The patient was placed in the left lateral decubitis position and pre-procedure medications were administered and a bite block was placed. The endoscope was inserted into the mouth and advanced under direct vision to the third part of duodenum. A careful inspection was made as the upper endoscope was withdrawn including a retroflexed examination of the proximal stomach; Findings and interventions are described below. Findings: Larynx:? Normal Esophagus:?GE junction at 36 cms. No esophagitis or Kwan's. Stomach:?Mild diffuse gastric erythema. Biopsies were obtained from the gastric antrum and body. Grade 2 flap valve on retroflexed examination of the cardia. Duodenum:?Normal bulb and descending duodenum.? Biopsies were obtained from 3rd part of the duodenum to check for celiac sprue. Intervention:?Biopsies as noted above COLONOSCOPY PROCEDURE NOTE Consent:?Indications for the procedure and potential complications of bleeding, perforation, reaction to medications and missed diagnosis were discussed with the patient and informed consent was obtained. Instrument:?Olympus PCF H 190 L variable stiffness pediatric colonoscope Monitoring:?Vital signs and clinical assessment, intermittent blood pressure monitoring, continuous EKG monitoring, Pulse oximetry and Carbon Dioxide monitoring were done throughout the procedure. Colon withdrawl time was 17 minutes. Procedure:?The patient was placed in the left lateral decubitis position and pre-procedure medications were administered. After a digital rectal examination of the ano-rectum, the video colonoscope was inserted into the rectum and advanced through the colon to the cecum. The colonoscope was slowly withdrawn in a retrograde panoramic fashion and the colon mucosa was carefully examined including a retroflexed view of the rectum. Findings and interventions are described below. Procedure Difficulty:?: Without difficulty Findings: Terminal Ileum: Distal 10 cms was examined and appeared normal Cecum:? Normal Ascending Colon:??A 4-5 mm sessile polyp in the distal AC removed with a cold bx. Transverse Colon:??A 6-7 mm sessile polyp, removed with a cold bx Descending Colon:? Normal Sigmoid Colon:??Moderate diverticulosis Rectum:??Normal Ano-rectum:??[place]-anal skin tags Colon preparation: Excellent ? Impression and Post Procedure Diagnosis: Endoscopy Findings: STOMACH:?Mild diffuse gastric erythema. Biopsies were obtained from the gastric antrum and body. DUODENUM: Normal Colonoscopy Findings: Two small polyps removed Moderate diverticulosis seen in the sigmoid colon Plan: Await pathology results Patient has an appointment on 05/11/22 in the GI Clinic with? Laly Rios NP. Repeat Colonoscopy interval based on path results - in 5 years if polyps are adenomatous and 10 years if polyps are hyperplastic. Above findings were reviewed with the patient and Gastritis, colon polyps and diverticulosis handouts were given in the discharge area Surgeon: Karthik Lewis MD Anesthesia:?MAC Was an Business Analyst Project Manager used for this Procedure?:?Yes Business Analyst Project Manager:?Carlos Eduardo Romero Estimated blood loss (mL):?0 Pathology:?other (A) BX Small Bowel? B) BX Gastric Antrum? C) BX Gastric Body? D)BX Right Colon? R/O Microscopic Colitis? E) Polyp Ascending Colon? F) Polyp Transverse Colon ? ) Condition:?stable Disposition:?PACU
== END 2022-04-25 15:25 | disposition home or self-care (01) ==
PROVIDERS: Nurse Practitioner; PCP Nurse Practitioner Family; Visit Provider Internal Medicine Gastroenterology
PROC: (CPT 45380; principal; 2022-04-25 13:20)
DX: R10.9 Unspecified abdominal pain (principal); D12.2 Benign neoplasm of ascending colon; D12.3 Benign neoplasm of transverse colon; K57.30 Diverticulosis of large intestine without perforation or abscess without bleeding; K64.8 Other hemorrhoids; K59.04 Chronic idiopathic constipation; K29.50 Unspecified chronic gastritis without bleeding; K63.89 Other specified diseases of intestine; K64.4 Residual hemorrhoidal skin tags; I10 Essential (primary) hypertension; D64.9 Anemia, unspecified; Z79.899 Other long term (current) drug therapy; Z88.2 Allergy status to sulfonamides; Z88.8 Allergy status to other drugs, medicaments and biological substances; Z86.16 Personal history of COVID-19
CPT/HCPCS: 45380; 43239; 81025; 88305; 88342; J2250; J3010

== ENCOUNTER 2022-05-07 08:26 | Outpatient (REF) | payer OTHER, SELFPAY ==
[2022-05-07 08:41] LABS: MANUAL DIFF FLAG NO
[2022-05-07 09:13] LABS: Basophils Absolute Auto 0.1 X10*3/uL (0.0-0.2); Basophils Percent Auto 0.8 % (0-2); Eosinophils Absolute Auto 0.2 X10*3/uL (0.0-0.4); Eosinophils Percent Auto 3.2 % (0-4); Hematocrit 40.2 % (37.0-47.0); Hemoglobin 13.5 g/dl (12.0-16.0); Imm Gran Abs Auto 0.05 X10*3/uL (0.00-0.03); Imm Gran Pct Auto 0.7 % (0.0-0.4); Lymphocytes Absolute Auto 1.7 X10*3/uL (1.2-4.9); Lymphocytes Percent Auto 23.5 % (20-40); Mean Corpuscular HGB Conc 33.6 g/dl (31.0-35.0); Mean Corpuscular Volume 92.4 fL (80.0-98.0); Mean Platelet Volume 9.8 fL (9.4-12.3); Monocytes Absolute Auto 0.7 X10*3/uL (0.1-1.2); Monocytes Percent Auto 9.2 % (2-11); Neutrophils Absolute Auto 4.6 x10*3/uL (2.0-8.3); Neutrophils Percent Auto 62.6 % (45-73); Platelet Count 390 X10*3/uL (160-400); Red Blood Count 4.35 X10*6/uL (4.20-5.50); Red Cell Distribution Width 11.8 % (11.0-16.0); White Blood Count 7.4 X10*3/uL (4.8-10.8)
[2022-05-07 09:47] LABS: Alanine Aminotransferase 20 U/L (0-31); Albumin Level 4.3 g/dL (3.5-5.0); Alkaline Phosphatase 91 U/L (39-117); Anion Gap 14 (12-20); Aspartate Amino Transferase 16 U/L (5-31); Bilirubin Total 0.6 mg/dL (0.0-1.0); Blood Urea Nitrogen 11 mg/dL (9-16); Calcium 9.5 mg/dL (8.4-10.2); Carbon Dioxide 26 mmol/L (22-29); Chloride 105 mmol/L (96-108); Cholesterol 278 mg/dL; Estimated Glomerular Filt Rate > 60; Glucose Fasting 91 mg/dL (60-99); HDL Cholesterol 57 mg/dL; LDL Cholesterol Calculated 176 mg/dl; Potassium 4.4 mmol/L (3.3-5.1); Sodium 141 mmol/L (135-145); Total Protein 6.9 g/dL (6.5-8.0); Triglycerides 229 mg/dL
[2022-05-07 10:01] LABS: Appearance Urine CLEAR; Color Urine YELLOW; Glucose Urine UA NEG (NEG); Leukocyte Esterase Urine NEG (NEG); Nitrite Urine NEG (NEG); PH 7.5 (5.0-8.0); Specific Gravity - Urine 1.015 (1.005-1.025); Urine Blood NEG (NEG); Urine Ketones NEG (NEG); Urine Protein NEG (NEG-TRACE)
[2022-05-07 10:08] LABS: TSH reflex Free T4 2.09 uIU/mL (0.32-4.0)
== END 2022-05-07 08:27 | disposition home or self-care (01) ==
LOC: HO.LAB 08:26
PROVIDERS: PCP Nurse Practitioner Family; Visit Provider Nurse Practitioner Family
DX: Z00.00 Encounter for general adult medical examination without abnormal findings (principal)
CPT/HCPCS: 36415; 80053; 80061; 81003; 84443; 85025

== ENCOUNTER → 2022-05-11 15:49 | Outpatient (BNVA) | payer OTHER, SELFPAY | PROVIDERS: PCP Nurse Practitioner Family; Visit Provider Nurse Practitioner | DX: D12.2 Benign neoplasm of ascending colon (principal); R19.5 Other fecal abnormalities; K63.89 Other specified diseases of intestine; R10.9 Unspecified abdominal pain; Z98.890 Other specified postprocedural states | CPT/HCPCS: 99212 ==

== ENCOUNTER 2022-05-26 08:41 | Outpatient (AMB) | payer OTHER, SELFPAY ==
[2022-05-26 08:45] VITALS: BP 123/80; PULSE 80; BMI 35.9
--- NOTE | 2022-05-26 08:45 | MHC.OFFVIS ---
Vital Signs 05/26/22 08:45 Height 5 ft 6 in Weight 223 lb BMI 35.9 BP 123/80 Blood Pressure Location Lt brachial Position Sitting Pulse 80 Intake Visit Reasons: follow up with Intake Note: Johnathon presents in the office for a follow up with Dr. Lewis. CC: She states that she is miserable but she has a lot going on. Stomach has been having flare ups. At the moment she is having diarrhea. Sometimes she will notice that there is blood when she wipes but none this morning. 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: No Allergies Sulfa (Sulfonamide Antibiotics) [SULFA (SULFONAMIDE ANTIBIOTICS)] Allergy (Severe, Verified 07/06/22 07:59) RASH, hives bee pollen [BEE STINGS] Allergy (Mild, Verified 07/06/22 07:59) SWELLING, EPI PEN fentanyl Adverse Reaction (Verified 07/06/22 07:59) Unknown hydromorphone [From Dilaudid] Adverse Reaction (Verified 07/06/22 07:59) Unknown Medication List - Last Reconciled 05/26/22 by Karthik Lewis MD albuterol sulfate 90 mcg/actuation (ProAir HFA) 2 puffs inhalation Q4H ascorbic acid-collagen 125-740 mg (Collagen Plus Vitamin C) caps PO atorvastatin 10 mg PO BEDTIME 30 days Bacillus coagulans (Digestive Advantage Probiotics-Prebiotic) cells PO betamethasone dipropionate 0.05% topical budesonide ER 3 mg PO TID cetirizine (Zyrtec) 10 mg PO DAILY PRN docusate sodium 100 mg PO DAILY lisinopril-hydrochlorothiazide 10-12.5 mg 1 tab PO DAILY lorazepam 0.5 mg PO BID PRN 30 days multivitamin 1 tab PO DAILY ondansetron HCl 8 mg PO Q12H PRN 10 days pantoprazole 40 mg PO DAILY sumatriptan succinate 25 mg PO; Take one tab by mouth at least 2 hrs between doses, as needed, twice a day as needed 30 days tizanidine 2 mg PO BID PRN 30 days HPI HPI follow up with : Details: GI clinic visit for this 47 YF for FU of abdominal pain, diarrhea and constipation Pt had COVID infection in 08/2021 LAB[facility] : Reviewed IMAGING STUDIES: ABd US, Abd CT and MRI - results reviewed ENDOSCOPIC STUDIES: 04/25/22 EGD AND COLON SHOWED: Endoscopy Findings: STOMACH:?Mild diffuse gastric erythema. Biopsies were obtained from the gastric antrum and body. DUODENUM: Normal Colonoscopy Findings: Two small polyps removed Moderate diverticulosis seen in the sigmoid colon Plan: Repeat Colonoscopy interval based on path results - in 5 years if polyps are adenomatous and 10 years if polyps are hyperplastic. Above findings were reviewed with the patient and Gastritis, colon polyps and diverticulosis handouts were given in the discharge area BIOPSIES SHOWED: B.? Gastric antrum, biopsy:? Gastric antral mucosa with mild reactive changes and minimal chronic inactive gastritis; negative for H pylori, intestinal metaplasia and dysplasia. C.? Gastric body, biopsy:? Gastric body mucosa with minimal chronic inactive gastritis; negative for H pylori, intestinal metaplasia and dysplasia. D.? Colon, right, biopsy:? Colonic mucosa with no specific change; no evidence of microscopic colitis. E.? Colon, ascending, polyp:? Tubular adenoma; negative for high-grade dysplasia and carcinoma.? F.? Colon, transverse, polyp:? Tubular adenoma; negative for high-grade dysplasia and carcinoma. G.? Colon, left, biopsy:? Colonic mucosa with no specific change; no evidence of microscopic colitis.? TODAY'S VISIT: Horrible digestive symptoms since she had the COVID infection. Normal BMs daily before COVID. Now has diarrhea alternating with constipation. Still unable to eat certain foods - like eggs and salads, tomato sauce, beans, pizza, beef. Able to eat fruit. Broccoli causes gas pain and still able to take it. Gets violently sick after she takes tomatoes - throws up and has diarrhea. Has constipation and bleeding for a whole week. Has had diarrhea for the last 3 days and can last a whole week (10 or more watery or loose BMs a day) Sometimes it just shoots out of me . Getting evicted by her landlord - staying with her Mom and a friend Also has upper abdominal pain and on the sides - like pain of period cramp and is dull. Gnawing, dull sensation. There all the time. Worse on sitting for too long (had to leave a job in [employer] since it involved sitting) Having a BM is painful. Notes bleeding after straining to have a BM. Has to use a heating pad at work Muscle relaxants are helping (Tizanidine - takes it at night since it makes her drowsy) Does not want to be on a steroid - Budesonide was increased to 3 She was doing intermittent fasting - now taking frequent small meals. Has a friend with Crohn's disease. Continues to have nausea and vomiting - usually related to diet. Patient denies symptoms of heartburn, dysphagia, Has asthma and had an EKG for a heartburn Patient denies loud snoring or sleep apnea Hot flashes due to nina-menopausal symptoms Denies being on chronic anticoagulation. Patient denies known family history of IBD, colon polyps, colon cancer or other GI malignancies. 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 No children. [facility] Medical History Anemia Chronic low back pain Dysfunctional uterine bleeding Endometriosis Fibroid, uterine History of COVID-19 History of Lyme disease History of pituitary adenoma Hypertension Migraines Right temporomandibular joint disorder, unspecified Seasonal allergies Surgical History H/O colonoscopy History of dilation and curettage History of esophagogastroduodenoscopy (EGD) History of lumpectomy of right breast Hx of sinus surgery Status post embolization of uterine artery Family History Father Prostate cancer HTN (hypertension) Mother Optic nerve benign neoplasm Paternal Aunt Breast cancer Paternal Uncle Substance use disorder Family/Other Substance use disorder Maternal Aunt Mental health disorder Social History Housing: House Alcohol intake: current Alcohol intake frequency: holidays/special occasions only Patient Tobacco Use Status: Never used Tobacco e-Cigarette/Vaping Use: Never Used Second Hand Smoke Exposure: No Current occupational status: employed Current occupation: [employer] Sexual orientation: Straight/Heterosexual Gender identity: Female Cognitive needs: No Hearing needs: No Vision needs: No Female Reproductive History Menstrual Age of Menarche: 10 Review of Systems Const All systems reviewed & are unremarkable except as noted in HPI and below Physical Exam Vital Signs: Last Vital Signs Pulse 80 05/26/22 08:45 BP 123/80 05/26/22 08:45 BMI result Body Mass Index 35.9 Const General: healthy appearing and no acute distress Nutritional Appearance: obese Orientation/consciousness: patient oriented x3 Limitations: no limitations HEENT Head: Yes normal to inspection Ears: hearing grossly normal bilaterally Eyes Sclerae: sclerae normal Pupils: Equal, round and reactive pupils present Neck Neck: Yes normal visual inspection Chest Chest palpation & inspection: normal inspection of the chest Resp Effort & Inspection: normal respiratory effort Auscultation: clear to auscultation bilaterally Cardio Palpation: normal PMI Rate: regular rate Rhythm: regular rhythm Heart sounds: S1 normal heart sound present, S2 normal heart sound present and no murmurs GI Palpation (GI): Soft to palpation, nontender and No hepatosplenomegaly present Auscultation: normal bowel sounds Rectal Exam - Female: deferred Skin General skin exam: no rashes or lesions noted Neuro General: patient oriented x3, gait normal and moves all extremities Cranial nerves: Yes Equal, round and reactive pupils present Psych Appearance: grossly normal Mental Status: mental status grossly normal Assessment & Plan Assessment & Plan (1) IBS (irritable bowel syndrome): Code(s): K58.9 - Irritable bowel syndrome without diarrhea Category: Medical (2) Liver cyst: Code(s): K76.89 - Other specified diseases of liver Category: Medical Plan 47 YF for FU of abdominal pain, diarrhea and constipation Pt had COVID infection in 08/2021 Horrible digestive symptoms since she had the COVID infection. Normal BMs daily before COVID. Now has diarrhea alternating with constipation. Still unable to eat certain foods - like eggs and salads, tomato sauce, beans, pizza, beef. Pt was advised to schedule an MRI abdomen for further evaluation Amitriptyline 25 mg at bedtime. Fiber supplement and senna as needed for constipation 07/28/22 Pt called: Having trouble with constipation - if she takes 2 tablets of Senna and have been pooping all day long - watery mush. Trying to take Senna every other day. Having abdominal pain every other day. Amitriptyline has helped with her mood. Feels bloated all the time Taking 2 capsule Budesonide daily since the past 2 weeks. Advised to decrease to 1 capsule a day x 2 weeks and then stop To increase amitriptyline to 50 mg daily. And start Linzess 145 mcg daily for constipation. FU in 3 weeks Orders: Orders MR abdomen wo/w con 05/26/22 K76.89 - Other specified diseases of liver Medications: New psyllium husk mix into at least 8 oz of water or juice before administering 1 tbsp PO DAILY 480 grams 3RF 30 days K58.9 - Irritable bowel syndrome without diarrhea amitriptyline 25 mg PO BEDTIME 30 tabs 1RF 30 days K58.9 - Irritable bowel syndrome without diarrhea sennosides (senna) 8.6 mg PO DAILY 30 tabs 3RF 30 days K58.9 - Irritable bowel syndrome without diarrhea Changed From budesonide DR-ER 3 mg PO DAILY 90 ea 6RF K63.89 - Other specified diseases of intestine To budesonide DR-ER 3 mg PO TID K63.89 - Other specified diseases of intestine Coding Level of Care Code Est Pt Level 4 (85771) Diagnoses IBS (irritable bowel syndrome) K58.9 Liver cyst K76.89 Time Spent (min) 22
== END 2022-05-26 10:26 | disposition home or self-care (01) ==
LOC: HO.HGI 08:41
PROVIDERS: PCP Nurse Practitioner Family; Visit Provider Internal Medicine Gastroenterology
DX: K58.9 Irritable bowel syndrome, unspecified (principal); K76.89 Other specified diseases of liver
CPT/HCPCS: 99499

== ENCOUNTER 2022-06-01 14:17 | Outpatient (REF) | payer OTHER, SELFPAY ==
[2022-06-01 18:41] LABS: CT PCR NOT DETECTED (Not Detect.); NG PCR NOT DETECTED (Not Detect.)
== END 2022-06-01 14:18 | disposition home or self-care (01) ==
LOC: HO.LNP 14:17
PROVIDERS: Visit Provider Obstetrics & Gynecology
DX: Z11.3 Encounter for screening for infections with a predominantly sexual mode of transmission (principal); R10.2 Pelvic and perineal pain; N95.1 Menopausal and female climacteric states
CPT/HCPCS: 87491; 87591; 99202

== ENCOUNTER 2022-06-23 15:06 | Outpatient (REF) | payer OTHER, SELFPAY ==
--- NOTE | ~2022-06-23 | US_ITS ---
EXAMINATION: US PELVIS CLINICAL INFORMATION: Pelvic and perineal pain. COMPARISON: None TECHNIQUE: Ultrasound of the pelvis is performed using both transabdominal and transvaginal transducers along with Doppler. Transvaginal imaging is performed due to inadequate visualization transabdominally. FINDINGS: Uterus: The uterus is anteverted and measures 8.0 cm in length, 5.8 mL in AP and 8.0 cm in transverse dimension. The double wall meter is not visualized due to fibroid disease. The uterus is smooth in contour and has normal myometrial echogenicity. Moderate size 2 fibroids visualized, the largest one in the left upper body of uterus measuring 5.1 x 5.3 x 5.1 cm. Previously it measured 6.9 x 3.2 x 4.8 cm. Second lesion in the right body of uterus measures 4.2 x 3.9 x 3.9 cm. Previously measured 5.3 x 5.0 x 5.2 cm. Adnexa: Both ovaries are visualized. There is normal color flow to the adnexa. There is no ovarian torsion. There is no pelvic ascites or fluid collection. Both ovaries are not visualized. US/US pelvic and transvaginal IMPRESSION: Anteverted uterus with 2 fibroids visualized, minimally smaller compared to previous ultrasound 04/15/2019. The ovaries are not visualized. There is no free fluid in the cul-de-sac.
== END 2022-06-23 15:07 | disposition home or self-care (01) ==
LOC: HO.HMGCX 15:06
PROVIDERS: PCP Nurse Practitioner Family; Visit Provider Obstetrics & Gynecology
DX: R10.2 Pelvic and perineal pain (principal)
CPT/HCPCS: 76830; 76856

== ENCOUNTER 2022-06-29 08:09 | Outpatient (REF) | payer OTHER, SELFPAY ==
--- NOTE | ~2022-06-29 | MR_ITS ---
EXAMINATION: MR ABDOMEN WITHOUT AND WITH CONTRAST CLINICAL INFORMATION: Follow up liver lesion. COMPARISON: Previous MRI of the abdomen December 2021, ultrasound December [address] October 2021. TECHNIQUE: MR abdomen was performed without and with use of 10 mL intravenous Gadavist gadolinium contrast. Postcontrast images are performed in multiphase dynamic sequences. Imaging was performed in 3 planes. FINDINGS: LUNG BASES: The visualized lung bases are unremarkable. LIVER, GALLBLADDER, AND BILIARY TREE: The liver is normal in size, smooth in contour, and normal in signal. There are 2 stable liver lesions. There is a 2 cm low signal T1, high signal T2-weighted lesion in the peripheral right lobe of the liver. This demonstrates delayed peripheral puddling enhancement and is consistent with a benign hemangioma, for example axial image 57 series 102. There is a second smaller 1.3 cm lesion in the anterior segment of the right lobe. This is similar in signal to the liver on T1-weighted sequences, slightly high signal on T2-weighted sequences and demonstrates early arterial phase enhancement and is similar to the liver in signal on later sequences. Again this most likely represents an adenoma or focal nodular hyperplasia. This could be differentiated with EOVIST contrast if clinically indicated. Probable tiny liver cyst in the lateral segment of the left lobe also stable. No new liver lesion. Normal gallbladder. Normal caliber intrahepatic and extrahepatic bile ducts. PANCREAS: Unremarkable. SPLEEN: Normal. ADRENAL GLANDS: Normal. KIDNEYS AND URETERS: The kidneys are normal in size, shape, and enhance symmetrically. No hydronephrosis. No perinephric stranding. GASTROINTESTINAL TRACT: No bowel obstruction. No ascites or fluid collection. ABDOMINAL WALL: No significant hernia is appreciated. LYMPH NODES: No lymphadenopathy. VASCULAR: Unremarkable. OSSEOUS STRUCTURES: Stable lesion in the L2 vertebral body likely representing a benign hemangioma. MR/MR abdomen wo/w con IMPRESSION: Stable liver lesions in the right lobe of the liver suggestive of a benign hemangioma and adenoma or focal nodular hyperplasia.
== END 2022-06-29 08:10 | disposition home or self-care (01) ==
LOC: HO.MRI 08:09
PROVIDERS: Visit Provider Internal Medicine Gastroenterology
DX: K76.89 Other specified diseases of liver (principal)
CPT/HCPCS: 74183; A9585

== ENCOUNTER 2022-06-30 12:26 | Outpatient (REF) | payer OTHER, SELFPAY ==
[2022-06-30 13:22] LABS: Influenza A PCR NEGATIVE (Negative); Influenza B PCR NEGATIVE (Negative); Resp Syncy Virus RNA Qual PCR NEGATIVE (Negative); SARS COV2 PCR INHOUSE NEGATIVE (Negative)
== END 2022-06-30 12:27 | disposition home or self-care (01) ==
LOC: HO.LNP 12:26
PROVIDERS: Visit Provider Internal Medicine
DX: Z20.822 Contact with and (suspected) exposure to COVID-19 (principal); R09.89 Other specified symptoms and signs involving the circulatory and respiratory systems
CPT/HCPCS: 0241U

== ENCOUNTER → 2022-07-06 07:54 | Outpatient (BNVA) | payer OTHER, SELFPAY | PROVIDERS: PCP Nurse Practitioner Family; Visit Provider Obstetrics & Gynecology | DX: N95.1 Menopausal and female climacteric states (principal); D25.9 Leiomyoma of uterus, unspecified | CPT/HCPCS: 99212 ==

== ENCOUNTER 2022-08-25 14:18 | Outpatient (REF) | payer OTHER, SELFPAY ==
[2022-08-25 16:40] LABS: MANUAL DIFF FLAG NO
[2022-08-25 16:42] LABS: Basophils Absolute Auto 0.1 X10*3/uL (0.0-0.2); Basophils Percent Auto 0.7 % (0-2); Eosinophils Absolute Auto 0.2 X10*3/uL (0.0-0.4); Hematocrit 43.4 % (37.0-47.0); Hemoglobin 14.3 g/dl (12.0-16.0); Imm Gran Abs Auto 0.03 X10*3/uL (0.00-0.03); Imm Gran Pct Auto 0.4 % (0.0-0.4); Lymphocytes Absolute Auto 2.2 X10*3/uL (1.2-4.9); Lymphocytes Percent Auto 25.6 % (20-40); Mean Corpuscular HGB Conc 32.9 g/dl (31.0-35.0); Mean Corpuscular Hemoglobin 30.6 pg (27.0-33.0); Mean Corpuscular Volume 92.7 fL (80.0-98.0); Mean Platelet Volume 9.9 fL (9.4-12.3); Monocytes Absolute Auto 0.5 X10*3/uL (0.1-1.2); Monocytes Percent Auto 6.4 % (2-11); Neutrophils Absolute Auto 5.5 x10*3/uL (2.0-8.3); Neutrophils Percent Auto 64.9 % (45-73); Platelet Count 388 X10*3/uL (160-400); Red Blood Count 4.68 X10*6/uL (4.20-5.50); Red Cell Distribution Width 11.9 % (11.0-16.0); White Blood Count 8.5 X10*3/uL (4.8-10.8)
[2022-08-25 16:53] LABS: Alanine Aminotransferase 24 U/L (0-31); Albumin Level 4.5 g/dL (3.5-5.0); Alkaline Phosphatase 108 U/L (39-117); Anion Gap 11 (12-20); Aspartate Amino Transferase 13 U/L (5-31); Bilirubin Total 0.4 mg/dL (0.0-1.0); Blood Urea Nitrogen 12 mg/dL (9-16); Calcium 10.2 mg/dL (8.4-10.2); Carbon Dioxide 30 mmol/L (22-29); Chloride 100 mmol/L (96-108); Estimated Glomerular Filt Rate > 60; Glucose Random 127 mg/dL (60-115); Potassium 4.3 mmol/L (3.3-5.1); Sodium 137 mmol/L (135-145); Total Protein 7.2 g/dL (6.5-8.0)
[2022-08-28 05:04] LABS: A. Phagocytphilium DNA,RT-PCR NOT DETECTED (NOT DETECTED); Babesia Microti DNA, RT-PCR NOT DETECTED (NOT DETECTED); Borrelia Miyamotoi,DNA RT-PCR NOT DETECTED (NOT DETECTED); E.Chaffeensis DNA RT-PCR NOT DETECTED (NOT DETECTED); Lyme(Borrelia ssp)DNA RT-PCR NOT DETECTED (NOT DETECTED)
[2022-08-28 15:39] LABS: Calcium (PTHI) 10.2 mg/dL (8.6-10.2); PTHI 38 pg/mL (16-77)
[2022-08-30 15:23] LABS: Calcium, Ionized 5.3 mg/dL (4.8-5.6)
== END 2022-08-25 14:19 | disposition home or self-care (01) ==
LOC: HO.HMGCLDS 14:18
PROVIDERS: PCP Nurse Practitioner Family; Visit Provider Nurse Practitioner Family
DX: E83.52 Hypercalcemia (principal); T14.8XXA Other injury of unspecified body region, initial encounter; W57.XXXA Bitten or stung by nonvenomous insect and other nonvenomous arthropods, initial encounter
CPT/HCPCS: 36415; 80053; 82330; 83970; 85025; 87798; 87801

== ENCOUNTER 2023-02-06 07:22 | Outpatient (REF) | payer OTHER, SELFPAY ==
--- NOTE | ~2023-02-06 | CT_ITS ---
EXAMINATION: CT CHEST WITHOUT CONTRAST CLINICAL INFORMATION: Solitary pulmonary nodule COMPARISON: Previous chest CT January 2022 TECHNIQUE: Multidetector volumetric CT imaging of the chest was done. Axial MIP volume rendering provided. Sagittal and coronal reformatted images were obtained. This CT examination was performed using dose optimization techniques as appropriate, variously including the following: *Automated exposure control *Adjustment of mA and/or kV according to patient size (this includes techniques or standardized protocols for targeted exams where dose is matched to indication/reason for exam; i.e. extremities or head) *Use of iterative reconstruction technique DLP: 154 mGy-cm FINDINGS: LUNGS: 2 mm left upper lobe nodule axial image 143 series 7. 2 mm peripheral or subpleural right upper lobe nodule axial image 143 series 7. 2 mm peripheral or subpleural right lower lobe nodule adjacent to the major fissure axial image 251 series 7. 5 mm peripheral or subpleural right lower lobe nodule axial image 263 series 7 adjacent to the major fissure. 3 mm peripheral or subpleural left lower lobe nodule axial image 291 series 7. 3 mm peripheral or subpleural right middle lobe nodule axial image 339 series 7. MEDIASTINUM: The mediastinum is normal. CORONARY ARTERY CALCIFICATION: None visualized on this study. PLEURA: There is no pleural effusion. No pleural mass or thickening. AXILLA: No lymphadenopathy. 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 There may be diverticulosis of the colon. OSSEOUS STRUCTURES: Mild degenerative changes of the lower thoracic spine. CT/CT chest wo IV con IMPRESSION: Stable small pulmonary nodules from January 2022 exam. No imaging follow-up recommended. Fleischner guidelines were followed.
== END 2023-02-06 07:23 | disposition home or self-care (01) ==
LOC: HO.CT 07:22
PROVIDERS: PCP Nurse Practitioner Family; Visit Provider Nurse Practitioner Family
DX: R91.1 Solitary pulmonary nodule (principal)
CPT/HCPCS: 71250